=== PATIENT | female | born 1975 | race Caucasian/White ===

== ENCOUNTER 2017-07-12 17:50 | Emergency (ER) | payer OTHER ==
[~2017-07-12] VITALS: Ht 162.6 cm; Wt 110.9 kg
[2017-07-12 17:51] VITALS: BP 148/79; PULSE 64; RESP 20; TEMP 98; O2SAT 100
[2017-07-12] MEDS ORDERED: CLIN1CAP6 PO (18:51)
--- NOTE | 2017-07-12 18:52 | PD ---
HPI Chief Complaint: Skin Problem Time Seen by Provider: 18:45 Travel History International Travel<30 days: No Contact w/Intl Traveler<30days: No Traveled to known affect area: No History of Present Illness HPI 41 YO female with an inflamed sebaceous cyst to her anterior chest wall. Patient reports this cyst has been present for several years but has become increasingly more painful and red the last 7 days. Patient denies fever or chills. symptom severity moderate. no alleviating factors. PFSH Past Medical History Medical History: Denies Significant Hx Diminished Hearing: No Tetanus Vaccination: Unknown Influenza Vaccination: No ?: Not LMP: WEEK AGO Past Surgical History Section: Yes Social History Alcohol Use: Yes (occ) Tobacco Use: No Substance Use: No Allergies-Medications (Allergen,Severity, Reaction): Coded Allergies: No Known Allergies (Verified , 08/12/13) Reported Meds & Prescriptions Reported Meds & Active Scripts Active Clindamycin (Clindamycin HCl) 300 Mg Cap 300 Mg PO Q6H 10 Days Review of Systems Except as stated in HPI: all other systems reviewed are Neg General / Constitutional: No: Fever Physical Exam Narrative GENERAL: alert well appearing female. NAD SKIN: Warm and dry. 2x2 cm area od erythema & induration without fluctuance on the anterior chest wall HEAD: Normocephalic. EYES: No scleral icterus. No injection or drainage. NECK: Supple, trachea midline. No JVD or lymphadenopathy. CARDIOVASCULAR: Regular rate and rhythm without murmurs, gallops, or rubs. RESPIRATORY: Breath sounds equal bilaterally. No accessory muscle use. GASTROINTESTINAL: Abdomen soft, non-tender, nondistended. MUSCULOSKELETAL: No cyanosis, or edema. BACK: Nontender without obvious deformity. No CVA tenderness. Data Data Last Documented VS Vital Signs Date Time Temp Pulse Resp B/P (MAP) Pulse Ox O2 Delivery O2 Flow Rate FiO2 07/12/17 17:51 98.0 64 20 148/79 (102) 100 MDM Medical Decision Making Medical Screen Exam Complete: Yes Emergency Medical Condition: Yes Differential Diagnosis Sebaceous cyst, abscess, cellulitis Narrative Course 41 YO female with an inflamed sebaceous cyst to her anterior chest wall. Patient reports this assessment present for several years but has become increasingly more painful and red the last week. On exam patient has an indurated 2 cm diameter sebaceous cyst. Patient denies fever or chills. She is nontoxic-appearing. The area is indurated without fluctuance. Patient will be put on antibiotics and instructed to follow-up with [employer] [facility] for removal of cyst. Patient verbalizes understanding and agrees to plan. Diagnosis Primary Impression: Sebaceous cyst Referrals: [employer] Additional Instructions: Take the antibiotics as prescribed. Take [id number] Motrin 600-800 mg every 6-8 hours as needed for pain. make an appointment for follow up with [employer] [facility]. Scripts Clindamycin (Clindamycin) 300 Mg Cap 300 MG PO Q6H for Infection for 10 Days, #40 CAP 0 Refills Prov: Mi Dalton 07/12/17 Disposition: 01 DISCHARGE HOME Condition: Stable Mi Dalton Jul 12, 2017 18:52
== END 2017-07-12 19:14 | disposition home or self-care (01) ==
LOC: PHEFT 17:50
DX: L72.3 Sebaceous cyst (principal)
CPT/HCPCS: 99283

== ENCOUNTER 2018-03-06 18:03 | Emergency (ER) | payer OTHER ==
[~2018-03-06] VITALS: Ht 162.6 cm; Wt 112.6 kg
[~2018-03-06 18:03] MED LIST: CLIN300C5 PO
[2018-03-06 18:08] VITALS: BP 192/91; PULSE 75; RESP 18; TEMP 98.4; O2SAT 99
--- NOTE | 2018-03-06 20:11 | PD ---
HPI . Abdominal bloating Chief Complaint: GI Complaint Time Seen by Provider: 19:55 Travel History International Travel<30 days: No Contact w/Intl Traveler<30days: No Traveled to known affect area: No History of Present Illness HPI Patient presents with chief complaint of abdominal bloating. Onset 5 days ago. It is getting progressively worse. She states that the severity is 6/10. Associated symptoms include nausea and lightheadedness. She denies any change in appetite. She states that she is having bowel movements. She denies any vomiting. She denies any urinary tract symptoms. [facility] Past Medical History Diminished Hearing: No ?: Not LMP: 02/10/18 Past Surgical History Section: Yes Social History Alcohol Use: Yes (occ) Tobacco Use: No Substance Use: No Allergies-Medications (Allergen,Severity, Reaction): Coded Allergies: No Known Allergies (Verified Adverse Reaction, Unknown, 03/06/18) Reported Meds & Prescriptions Reported Meds & Active Scripts Active Review of Systems Except as stated in HPI: all other systems reviewed are Neg Physical Exam Narrative GENERAL: Awake and alert and in no acute distress. SKIN: warm/dry. HEAD: Normocephalic. Atraumatic. EYES: Pupils equal and round. No scleral icterus. No injection or drainage. ENT: No nasal bleeding or discharge. Mucous membranes pink and moist. NECK: Trachea midline. Full range of motion without pain.. CARDIOVASCULAR: Regular rate and rhythm. Heart sounds normal. RESPIRATORY: No accessory muscle use. Clear to auscultation. Breath sounds equal bilaterally. GASTROINTESTINAL: Abdomen soft. Nontender. Bowel sounds present. Nondistended. MUSCULOSKELETAL: No obvious deformities. NEUROLOGICAL: Awake and alert. No obvious cranial nerve deficits. Motor grossly within normal limits. Normal speech. PSYCHIATRIC: Appropriate mood and affect; insight and judgment normal. Data Data Last Documented VS Vital Signs Date Time Temp Pulse Resp B/P (MAP) Pulse Ox O2 Delivery O2 Flow Rate FiO2 03/06/18 21:20 20 03/06/18 21:17 73 126/72 (90) 97 03/06/18 18:08 98.4 Orders Orders Complete Blood Count With Diff (03/06/18 20:07) Comprehensive Metabolic Panel (03/06/18 20:07) Lipase (03/06/18 20:07) Urinalysis - C+S If Indicated (03/06/18 20:07) Abdomen, Flat & Upright (03/06/18 ) Iv Access Insert/Monitor (03/06/18 20:07) Ecg Monitoring (03/06/18 20:07) Oximetry (03/06/18 20:07) Sodium Chloride 0.9% Flush (Ns Flush) (03/06/18 20:15) Ed Urine Pregnancytest Poc (03/06/18 20:07) Labs Laboratory Tests Test 03/06/18 20:45 03/06/18 21:15 Urine Color YELLOW Urine Turbidity CLEAR Urine pH 5.5 Urine Specific [place] 1.020 Urine Protein NEG mg/dL Urine Glucose (UA) NEG mg/dL Urine Ketones NEG mg/dL Urine Occult Blood SMALL Urine Nitrite NEG Urine Bilirubin NEG Urine Urobilinogen 0.2 MG/DL Urine Leukocyte Esterase NEG Urine RBC 3-5 /hpf Urine WBC 0-2 /hpf Urine Squamous Epithelial Cells 0-5 /hpf Urine Bacteria NONE /hpf Microscopic Urinalysis Comment CULT NOT INDICATED White Blood Count 8.2 TH/MM3 Red Blood Count 4.51 MIL/MM3 Hemoglobin 13.4 GM/DL Hematocrit 39.1 % Mean Corpuscular Volume 86.7 FL Mean Corpuscular Hemoglobin 29.6 PG Mean Corpuscular Hemoglobin Concent 34.2 % Red Cell Distribution Width 12.6 % Platelet Count 216 TH/MM3 Mean Platelet Volume 9.2 FL Neutrophils (%) (Auto) 61.5 % Lymphocytes (%) (Auto) 28.2 % Monocytes (%) (Auto) 6.3 % Eosinophils (%) (Auto) 1.5 % Basophils (%) (Auto) 2.5 % Neutrophils # (Auto) 5.1 TH/MM3 Lymphocytes # (Auto) 2.3 TH/MM3 Monocytes # (Auto) 0.5 TH/MM3 Eosinophils # (Auto) 0.1 TH/MM3 Basophils # (Auto) 0.2 TH/MM3 CBC Comment DIFF FINAL Differential Comment Blood Urea Nitrogen 13 MG/DL Creatinine 0.82 MG/DL Random Glucose 86 MG/DL Total Protein 7.3 GM/DL Albumin 3.7 GM/DL Calcium Level 8.5 MG/DL Alkaline Phosphatase 61 U/L Aspartate Amino Transf (AST/SGOT) 12 U/L Alanine Aminotransferase (ALT/SGPT) 19 U/L Total Bilirubin 0.3 MG/DL Sodium Level 139 MEQ/L Potassium Level 3.8 MEQ/L Chloride Level 106 MEQ/L Carbon Dioxide Level 26.1 MEQ/L Anion Gap 7 MEQ/L Estimat Glomerular Filtration Rate 76 ML/MIN Lipase 119 U/L MDM Medical Decision Making Medical Screen Exam Complete: Yes Emergency Medical Condition: Yes Differential Diagnosis Differential diagnosis of abdominal pain includes but is not limited to gastritis, pancreatitis, hepatitis, gastroenteritis, constipation, urinary retention, peptic ulcer disease, diverticulitis or appendicitis Narrative Course This patient presents complaining with abdominal bloating. She has a benign exam. She is not really able to tell me what she was worried about that brought her to the emergency department tonight. I have ordered routine abdominal pain labs along with a flat and upright abdominal x-ray. I have a very low index of suspicion for an emergent medical condition. CBC & BMP Diagram 03/06/18 21:15 Total Protein 7.3, Albumin 3.7, Calcium Level 8.5, Alkaline Phosphatase 61, Aspartate Amino Transf (AST/SGOT) 12 L, Alanine Aminotransferase (ALT/SGPT) 19, Total Bilirubin 0.3 UA neg Last Impressions Abdomen X-Ray 03/06/18 0000 Signed Impressions: CONCLUSION: Benign-appearing abdomen. The x-ray was independently reviewed by me. The history, exam, diagnostic testing, and current condition do not suggest any significant pathology to warrant further testing, continued ED treatment, admission, or surgical evaluation at this point. No EMC was found. The patient 's condition is stable and appropriate for discharge. Diagnosis Primary Impression: Abdominal bloating Additional Instructions: Follow-up with your primary care doctor if symptoms continue Disposition: 01 DISCHARGE HOME Condition: Stable Ciera Juarez MD March 06, 2018 20:11
[2018-03-06] MEDS ORDERED: SODIUM CHLORIDE 0.9% FLUSH 10 ML FLUSH IV FLUSH PRN (20:15)
[2018-03-06 20:55] LABS: BILIRUBIN, URINE NEG (NEG); BLOOD, URINE SMALL (NEG); GLUCOSE,URINE NEG (NEG); KETONE, URINE NEG (NEG); NITRITE,URINE NEG (NEG); PH, URINE 5.5 (5.0-8.5); URINE COLOR YELLOW (YELLW/STRAW); URINE LEUKOCYTE ESTERASE NEG (NEG)
[2018-03-06 21:00] LABS: SQUAMOUS EPITHELIAL CELL URINE 0-5 /hpf (0-5); WBC, URINE 0-2 /hpf (0-5)
--- NOTE | 2018-03-06 21:09 | RADRPT ---
EXAM DATE: 03/06/2018 9:05 PM EDT AGE/SEX: 42 years / Female INDICATIONS: Nausea and bloating for 5 days. CLINICAL DATA: This is the patient's initial encounter. Patient reports that signs and symptoms have been present for 4 - 6 days and indicates a pain score of 2/10. MEDICAL/SURGICAL HISTORY: None. section. COMPARISON: No prior [place] exams available for comparison. FINDINGS: Supine and upright views of the abdomen were performed. The abdominal bowel gas pattern is normal. No air-fluid levels are seen. No abnormal masses, calcifications, or organomegaly is seen. The visualiz ed lower lungs are clear. No evidence of free intraperitoneal gas. The osseous structures are unremar kable. CONCLUSION: Benign-appearing abdomen. Electronically signed by: Patrick Culp MD 03/06/2018 9:08 PM EDT
[2018-03-06 21:17] VITALS: BP 126/72; PULSE 73; RESP 20; O2SAT 97
[2018-03-06 21:25] LABS: AUTOMATED NEUTROPHIL # 5.1 TH/MM3 (1.8-7.7); BASOPHIL # 0.2 TH/MM3 (0-0.2); BASOPHIL % 2.5 % (0.0-2.0); EOSINOPHIL # 0.1 TH/MM3 (0-0.4); EOSINOPHIL % 1.5 % (0.0-4.0); HEMATOCRIT 39.1 % (35.0-46.0); HEMOGLOBIN 13.4 GM/DL (11.6-15.3); LYMPH % 28.2 % (9.0-44.0); LYMPHOCYTE # 2.3 TH/MM3 (1.0-4.8); MEAN CELL VOLUME 86.7 FL (80.0-100.0); MEAN CORPUSCULAR HEMOGLOBIN 29.6 PG (27.0-34.0); MEAN CORPUSCULAR HGB CONC 34.2 % (32.0-36.0); MEAN PLATELET VOLUME 9.2 FL (7.0-11.0); MONO % 6.3 % (0.0-8.0); MONOCYTE # 0.5 TH/MM3 (0-0.9); NEUT % 61.5 % (16.0-70.0); PLATELET COUNT 216 TH/MM3 (150-450); RED BLOOD COUNT 4.51 MIL/MM3 (4.00-5.30); RED CELL DISTRIBUTION WIDTH 12.6 % (11.6-17.2); WHITE BLOOD COUNT 8.2 TH/MM3 (4.0-11.0)
[2018-03-06 21:31] LABS: CHLORIDE 106 MEQ/L (98-107); SODIUM (NA) 139 MEQ/L (136-145)
[2018-03-06 21:34] LABS: CALCIUM 8.5 MG/DL (8.5-10.1)
[2018-03-06 21:35] LABS: ALBUMIN 3.7 GM/DL (3.4-5.0); BICARBONATE 26.1 MEQ/L (21.0-32.0); BLOOD UREA NITROGEN 13 MG/DL (7-18); GLUCOSE,RANDOM 86 MG/DL (74-106)
[2018-03-06 21:38] LABS: ALT (GPT) 19 U/L (10-53); AST (GOT) 12 U/L (15-37); CREATININE 0.82 MG/DL (0.50-1.00); GLOMERULAR FILTRATION RATE 76 ML/MIN (>89)
[2018-03-06 21:39] LABS: TOTAL BILIRUBIN ADULT 0.3 MG/DL (0.2-1.0); TOTAL PROTEIN 7.3 GM/DL (6.4-8.2)
[2018-03-06 21:41] LABS: ALKALINE PHOSPHATASE 61 U/L (45-117)
[2018-03-06 22:31] VITALS: BP 115/64
== END 2018-03-06 22:38 | disposition home or self-care (01) ==
LOC: PHED 18:03
DX: R14.0 Abdominal distension (gaseous) (principal); R11.0 Nausea; R42 Dizziness and giddiness
CPT/HCPCS: 74019; 80053; 81001; 83690; 84703; 85025; 99284